=== PATIENT | female | born 1945 | race Caucasian/White ===

== ENCOUNTER 2016-07-26 10:44 | Outpatient (CLI) | payer MEDICARE, OTHER ==
[~2016-07-26] VITALS: Ht 163.8 cm; Wt 89.1 kg
--- NOTE | ~2016-07-26 | HEMODYNAMI ---
PATIENT:HAWA ANTONIO MEDICAL RECORD: [id number] : 41 LOCATION:[facility] ADMISSION DATE: 07/26/16 Generatedon:07/26/201613:39 Patient name: HAWA ANTONIO Patient #: [id number] SSN: [id number] : 1945 Date of study: 07/26/2016 Page: Of Hemodynamic Procedure Report Patient Data Patient Demographics Procedure consent was obtained First Name: HAWA Gender: Female Last Name: MARISELA : 1945 Patient #: [id number] Age: 70 year(s) Race: SSN: [id number] Additional ID: [id number] Contact details [address]: [address] [place] [address] State: [place] City: [place] Zip code: [address] Past Medical History Allergies Allergen Reaction Date Comments Reported Other allergy 07/26/2016 Sulfa Admission Admission Data Admission Date: 07/26/2016 Admission Time: 10:44 Arrival Date: 07/26/2016 Arrival Time: 13:00 Admit Source: Other Height (in.): 66 BSA: 1.98 (m2) Height (cm.): 167.64 BMI: 31.63 (kg/m2) Weight (lbs.): 196 Weight (kg.): 88.9 Lab Results Lab Result Date: 07/26/2016 Lab Result Time: 0:00 Biochemistry Name Units Result Min Max BUN mg/dl 18 --(---*)-- 7 18 Creatinine mg/dl 1 --(--*-)-- 0.6 1.3 CBC Name Units Result Min Max Hemoglobin g/dl 13.9 --(*---)-- 13.5 17.5 Procedure Procedure Types Cath Procedure Diagnostic Procedure C [facility] w/Coronaries Miscellaneous Procedures Moderate Sedation up to 15 minutes Peripheral Cath Diagnostic Procedure Cath Peripheral Kapxt-Mlyijtz-Mrw-Off Procedure Description Procedure Date Procedure Date: 07/26/2016 Procedure Start Time: 13:23 Procedure End Time: 13:37 Procedure Staff Name Function Fredy Srinivasan MD Performing Physician [place] RT Scrub Yanira Ramsay RN Nurse Melly Romeo RT Monitor Indication Angina Procedure Data Cath Procedure Fluoroscopy Diagnostic fluoroscopy Total fluoroscopy Time: 2.6 time: 2.6 min min Diagnostic fluoroscopy Total fluoroscopy dose: 493 dose: 493 mGy mGy Contrast Material Contrast Material Type Amount (ml) Isovue 300 120 Entry Location Entry Primary Successful Side Size Upsize Upsize Entry Closure Succes sful Closure Location (Fr) 1 (Fr) 2 (Fr) Remarks Device Remarks Femoral Right 5 Fr Exoseal artery Estimated blood loss: 10 ml Diagnostic catheters Device Type Used For End Catheter Placement Cordis 5Fr JL 4.0 Procedure Catheter (MP) Cordis 5Fr 3DRC Catheter Procedure (MP) Cordis 5Fr Pigtail Ventriculography Catheter (MP) Procedure Complications No complications Procedure Medications Medication Administration Route Dosage Oxygen NC 2 l/min Heparin Flush Bag added to field 2 bags (1000units/500ml NS) Lidocaine 2% added to field 20 Versed I.V. 1 mg Fentanyl I.V. 50 mcg Versed I.V. 0.5 mg Fentanyl I.V. 25 mcg Versed I.V. 0.5 mg Fentanyl I.V. 25 mcg Fentanyl I.V. 25 mcg Fentanyl I.V. 25 mcg Hemodynamics Rest BSA: 1.98 (m2) HGB: 13.9 (g/dl) O2 Consumption: Estimated: 269.28 (ml/min) O2 Co nsumption indexed: Estimated:136 (ml/min/m) Heart Rate: 0 (bpm) Pressure Samples Time Site Value (mmHg) Purpose Heart Use Rate(bpm) 13:25 AO 128/47(80) Snapshot 15 13:30 LV 123/24,24 Snapshot 79 13:31 AO 124/38(72) Pullback 78 13:31 LV 130/-13,8 Pullback 78 Gradients Valve Time Site 1 Site 2 Mean SEP/DFP Peak To Heart Use (mmHg) (sec/min) Peak Rate (mmHg) (bpm) Aortic 13:31 LV AO 9 27 6 78 130/-13,8 124/38(72) Calculations Valve P-P Mean Valve Index Valve Source Name Gradient Area Flow (cm2) Aortic 6 9 6 9 Snapshots Pre Cath Intra NCS Post Cath Vital Signs Time Heart Resp SPO2 etCO2 [id number] NIBP (mmHg) Rhythm Pain Sedation Rate (ipm) (%) (mmHg) (mmHg) Status Level (bpm) 13:02:13 80 25 99 0 0 165/69(106) NSR 0 (11) 10(A) , No pain 13:06:39 79 16 99 0 0 159/65(103) NSR 0 (11) 10(A) , No pain 13:10:59 80 17 96 0 0 153/63(105) NSR 0 (11) 10(A) , No pain 13:15:21 74 16 95 0 0 143/58(87) NSR 0 (11) 10(A) , No pain 13:19:43 74 16 95 0 0 124/58(89) NSR 0 (11) 9(A) , No pain 13:24:02 71 19 97 0 0 129/56(108) NSR 0 (11) 9(A) , No pain 13:28:17 76 17 98 0 0 119/47(80) NSR 0 (11) 9(A) , No pain 13:33:17 78 18 96 0 0 Measuring NSR 0 (11) 9(A) , No pain 13:33:31 75 16 95 0 0 118/51(78) NSR 0 (11) 9(A) , No pain 13:37:47 78 18 95 0 0 123/55(82) NSR 0 (11) 9(A) , No pain Medications Time Medication Route Dose Verified Delivered Reason Notes Effe ctiveness by by 13:01:57 Oxygen NC 2 Fredy Yanira for l/min Craig Ramsay RN arrhythmia 13:02:05 Heparin Flush added 2 Fredy Fredy used for Bag to bags Craig Srinivasan MD procedure (1000units/500ml field NS) 13:02:15 Lidocaine 2% added 20ml Fredy Fredy used for to vial Craig Srinivasan MD procedure field 13:11:13 Versed I.V. 1 mg Fredy Yanira for Craig Ramsay RN sedation 13:11:20 Fentanyl I.V. 50 Fredy Yanira for mcg Craig Ramsay RN sedation 13:14:30 Versed I.V. 0.5 Fredy Yanira for mg Srinivasan MD [place] RN sedation 13:14:37 Fentanyl I.V. 25 Fredy Yanira for mcg Craig Ramsay RN sedation 13:16:53 Versed I.V. 0.5 Fredy Yanira for mg Craig Ramsay RN sedation 13:17:03 Fentanyl I.V. 25 Fredy Yanira for mcg Craig Ramsay RN sedation 13:20:37 Fentanyl I.V. 25 Fredy Yanira for mcg Craig Ramsay RN sedation 13:24:47 Fentanyl I.V. 25 Fredy Yanira for mcg Criag Ramsay RN sedation Procedure Log Time Note 12:47:27 Diagnostic Cath Status : Salvage 12:48:15 Indication : Angina 12:48:20 Yanira Ramsay RN sent for patient. Start room use. 12:48:21 Time tracking: Regular hours 12:48:26 Plan of Care:Hemodynamics will remain stable., Cardiac rhythm will remain stable., Comfort level will be maintained., Respiratory function will remain adequate., Patient/ family verbilizes understanding of procedure., Procedure tolerated without complication., Recovers from procedure without complications.. 12:50:45 Informed consent obtained and on chart 12:51:01 Admit Source: Other 12:51:03 Arrival Date: 07/26/2016 1:00:00 PM 12:57:03 Patient Height : 66 cm 12:57:11 Patient Weight : 196 kg 12:57:22 Patient received from Pre/Post Procedure Room to CCL 1 Alert and oriented. Tansferred to table in Supine position. 12:57:24 Warm blankets applied, and humza hugger turned on for patient comfort. 12:57:24 Correct patient and procedure confirmed by team. 12:59:30 H&P Date Dictated: 07/16/2016 Within 30 days and on chart., H&P Addendum completed by physician on day of procedure. (MUST COMPLETE FOR ALL OUTPATIENTS). 12:59:33 Family in waiting room. 12:59:36 Patient NPO since Midnight. 12:59:52 Patient allergic to Other allergySulfa 13:00:51 ECG and BP/O2 sat monitors applied to patient. 13:00:57 Vital chart was started 13:01:07 Baseline sample Acquired. 13:01:14 Rhythm: sinus rhythm 13:01:16 Full Disclosure recording started 13:01:57 Oxygen 2 l/min NC was administered by Yanira Ramsay RN; for arrhythmia; 13:02:05 Heparin Flush Bag (1000units/500ml NS) 2 bags added to field was administered by Fredy Srinivasan MD; used for procedure; 13:02:15 Lidocaine 2% 20ml vial added to field was administered by Fredy Srinivasan MD; used for procedure; 13:07:09 Is the patient allergic to Iodine/contrast media? No. 13:07:12 Is patient on blood thinner?No 13:07:16 Patient diabetic? N/A. 13:07:20 Snore? Yes 13:07:22 Sleep apnea? No 13:07:36 IV patent on arrival in right hand with 0.9% NaCl at [facility]. 13:07:53 Lab results completed and on chart. 13:08:00 Bilateral groins area was prepped with chlora-prep and draped in sterile fashion 13:08:17 Alarms reviewed by R. N. 13:08:18 Sharps counted by scrub and verified by R.N. 13:08:19 Physician paged 13:08:21 Physician arrived 13:09:57 --------ALL STOP TIME OUT------ 13:09:58 Final Timeout: patient, procedure, and site verified with staff and physician. All members of the team are in agreement. 13:10:04 Bilateral groins site verified by team. 13:10:09 Sedation plan: IV Moderate Sedation Versed, Fentanyl 13:10:14 Physical assessment completed. ASA score P 2 - A patient with mild systemic disease as per Fredy Srinivasan MD. 13:10:35 Use device set Femoral Dx 13:10:36 Acist Syringe opened to sterile field. 13:10:37 Bag Decanter opened to sterile field. 13:10:37 Medline Cath Pack opened to sterile field. 13:10:37 Terumo 5Fr [place] Sheath opened to sterile field. 13:10:38 St Madhav 260cm J .035 wire opened to sterile field. 13:10:39 Acist Hand Control opened to sterile field. 13:10:40 Acist Manifold opened to sterile field. 13:10:40 Diagnostic Infinity 5Fr Multipack catheter opened to sterile field. 13:10:41 Tegaderm 4 x 4 opened to sterile field. 13:11:13 Versed 1 mg I.V. was administered by Yanira Ramsay RN; for sedation; 13:11:20 Fentanyl 50 mcg I.V. was administered by Yanira Ramsay RN; for sedation; 13:14:30 Versed 0.5 mg I.V. was administered by Yanira Ramsay RN; for sedation; 13:14:37 Fentanyl 25 mcg I.V. was administered by Yanira Ramsay RN; for sedation; 13:16:53 Versed 0.5 mg I.V. was administered by Yanira Ramsay RN; for sedation; 13:17:03 Fentanyl 25 mcg I.V. was administered by Yanira Ramsay RN; for sedation; 13:17:06 Lab Result : Hemoglobin 13.9 g/dl 13:17:06 Lab Result : Creatinine 1 mg/dl 13:17:06 Lab Result : BUN 18 mg/dl 13:17:22 Procedure type changed to Cath procedure, Diagnostic procedure, LHC, LHC w/Coronaries, Miscellaneous Procedures, Moderate Sedation up to 15 minutes, Peripheral Cath Diagnostic Procedure, Cath Peripheral, Modxe-Yckemkd-Xwh-Off 13:20:37 Fentanyl 25 mcg I.V. was administered by Yanira Ramsay RN; for sedation; 13:22:11 Zero performed for pressure channel P1 13:22:22 Zero performed for pressure channel P1 13:22:45 Procedure started. 13:23:14 Local anesthetic to right femoral artery with Lidocaine 2% by Fredy Srinivasan MD.INITIAL ACCESS ONLY 13:24:20 A 5 Fr sheath was inserted into the Right Femoral artery 13:24:38 J wire advanced. 13:24:47 Fentanyl 25 mcg I.V. was administered by Yanira Ramsay RN; for sedation; 13:24:55 A Cordis 5Fr JL 4.0 Catheter (MP) was advanced over the wire and used for Procedure. 13:25:42 LCA angiography performed. 13:26:30 Catheter removed. 13:27:39 A Cordis 5Fr 3DRC Catheter (MP) was advanced over the wire and used for Procedure. 13:28:17 Catheter removed. 13:30:39 A Cordis 5Fr Pigtail Catheter (MP) was advanced over the wire and used for Ventriculography. 13:31:32 EF : 60 % 13:32:04 Abdominal angiogram w/ runoff was performed. 13:32:41 Left leg runoff performed. 13:32:52 Right leg runoff performed. 13:34:28 Catheter removed. 13:34:42 Cordis 5Fr Exoseal opened to sterile field. 13:35:02 Sheath removed intact; hemostasis achieved with Exoseal to the Right Femoral artery. 13:35:06 Procedure ended.(Physican Out) 13:35:22 Fluoroscopy time 02.60 minutes. 13:35:28 Fluoroscopy dose: 493 mGy 13:35:28 Flurop Dose total: 493 13:35:33 Contrast amount:Isovue 300 120ml. 13:35:35 Sharps counted by scrub and verified by R.N. 13:35:40 Insertion/operative site no bleeding no hematoma. 13:35:47 Post right femoral artery:stable 13:35:49 Post Procedure Pulses reassessed and unchanged 13:35:53 Post-procedure physical assessment completed. ASA score P 2 - A patient with mild systemic disease as per Fredy Srinivasan MD. 13:35:57 Post procedure rhythm: unchanged. 13:36:18 Estimated blood loss: 10 ml 13:36:20 Post procedure instruction explained to patient.Patient verbalizes understanding. 13:36:23 Procedure and supply charges have been captured, reviewed, submitted and are correct. 13:37:37 Procedure Complication : No complications 13:37:41 Vital chart was stopped 13:37:42 See physician's report for complete and final results. 13:37:49 Report given to Pre/Post Procedure Room. 13:37:55 Patient transfered to Pre/Post Procedure Room with Stretcher. 13:37:58 Procedure ended. 13:37:58 Full Disclosure recording stopped 13:38:01 End room use (Document Last) Device Usage Item Name Manufacture Quantity Catalog Hospital Part Current Minimal Lo t# / Number Charge Number Stock Stock Serial# Code Acist Acist 1 [id number] 420691 [id number] 20 Syringe [employer] Bag Microtek 1 2002S 879301 30423 613296 5 Decanter [employer] Medline Cardinal 1 [id number] [id number] 38235 786429 5 Cath Pack [employer] Terumo 5Fr Terumo 1 [id number] 462851 457393 [id number] [address] Madhav 1 004232 158408 204772 297693 30 260cm J .035 wire Acist Hand Acist 1 65946 675971 850069 188179 5 Control [employer] Inc Acist Acist 1 86319 086588 168146 655442 5 Manifold [employer] Inc Diagnostic Cardinal 1 [id number] 555122 09173 659821 30 Infinity [employer] 5Fr Multipack catheter Tegaderm 4 3M 1 1626W 468854 117197 099305 5 x 4 Cordis 5Fr Cardinal 1 313854 5 JL 4.0 Health Catheter (MP) Cordis 5Fr Cardinal 1 [id number] 5 3DRC Health Catheter (MP) Cordis 5Fr Cardinal 1 349178 5 Pigtail Health Catheter (MP) Cordis 5Fr Cardinal 1 EX500 131300 293856 171144 10 Bruin Brake [employer]ables Signature Audit Boaz Stage Time Signature Unsigned Intra-Procedure 07/26/2016 Melly Romeo 1:39:23 PM RT(R) Signatures Monitor : Melly Romeo Signature : RT Date : Time : [place] [id number] [place] [address]
--- NOTE | ~2016-07-26 | OP ---
PATIENT NAME: HAWA ANTONIO MEDICAL RECORD: [id number] :41 LOCATION:D.CAT ADMISSION DATE: SURGEON: CLEMENCIA DRAKE M.D. DATE OF OPERATION: 07/26/2016 Catheterization Report REFERRING PHYSICIAN: Manny Arizmendi MD. PROCEDURES PERFORMED: 1. Selective coronary angiography. 2. Left heart catheterization with ventriculogram. 3. Aortofemoral runoff. INDICATION: A 70-year-old presents with symptoms of accelerating angina. She has been having lifestyle limiting claudication as well. EQUIPMENT USED: A 5-Paraguayan JL4, Dave right, pigtail catheter. TECHNIQUE: A 5-Paraguayan sheath was inserted in retrograde fashion in the right common femoral artery. Next, selective coronary angiography was performed in standard 5-Paraguayan JL4 and Dave right. Left heart catheterization performed using pigtail catheter. Next, the pigtail catheter was pulled down to the level of T12. Power injection was performed to visualize the distal aorta. Next, the catheter was pulled down to the level of bifurcation. Prior injection was then performed to visualize the right and left lower extremities. CORONARY ANATOMY: 1. Left main: Left main trunk is moderate in caliber. It gives rise to the LAD and circumflex. It has no obstruction. 2. LAD: This is a large caliber vessel extending to the apex. It gives rise to a moderate caliber diagonal proximal segment. The LAD and diagonal have mild irregularities, but nothing worse than 20%. 3. Circumflex: This vessel is moderate in caliber, smooth-walled vessel and angiographically normal. 4. Right coronary: This vessel is moderate in caliber and dominant. It supplies the PDA and posterolateral branch in distal segment. This vessel encompasses the apex. This vessel is angiographically normal. 5. Left ventricle: Left ventricle is normal in size and function. No wall motion abnormalities are seen. Its ejection fraction is in the order of 60%. AORTOFEMORAL RUNOFF: The distal aorta is of good caliber. It is widely patent. Each kidney received single arterial supply. There is no evidence of renal artery stenosis. The right common iliac artery is large in caliber and widely patent. Right common femoral artery is large in caliber and widely patent. Right superficial artery is large in caliber and widely patent. Right popliteal artery large in caliber and widely patent. Below the knee, the patient appears to have 3-vessel runoff. Left common iliac artery is large in caliber and widely patent. Left common femoral artery is large in caliber and widely patent. Left superficial artery is large in caliber and widely patent. Left popliteal is large in caliber and widely patent. Below the knee, there appears to be 3-vessel runoff. OPERATIVE REPORT [id number] HAWA ANTONIO IMPRESSION: 1. Normal coronary arteries. 2. Normal left ventricular function. 3. No evidence of peripheral vascular disease. TRANSINT:[id number] Voice Confirmation ID: [id number] DOCUMENT ID: [id number] CLEMENCIA DRAKE M.D. CC: [id number] DICTATION DATE: 07/26/16 1343 CELL ATTENDANT HELPER: 07/26/16 2334 DEP CLI 07/26/16 [facility] [address] [place] [address]
[2016-07-26] MEDS ORDERED: MICARDIS40 MG PO (11:01)
[2016-07-26] MEDS ORDERED: BAYER CHEWABLE81 MG PO (11:02)
[2016-07-26] MEDS ORDERED: LIPITOR10 MG PO (11:02)
[2016-07-26] MEDS ORDERED: TOPROL XL100 MG (11:03)
[2016-07-26 11:04] VITALS: BP 175/58; Ht 163.8 cm; Wt 89.1 kg
[2016-07-26 11:48] LABS: HEMATOCRIT 42.2 % (36.0-48.0); HEMOGLOBIN 13.9 g/dL (12-16); IMMATURE GRANULOCYTES 0.2 % (0-5); LYMPHOCYTES 32.7 % (15-50); MCHC 32.9 g/dL (31.0-37.0); MCV 88.1 fL (80.0-100.0); MEAN PLATELET VOLUME 11.6 fL (7.4-10.4); MONOCYTES 11.3 % (2-11); NEUTROPHILS 47.8 % (40-80); PLATELET COUNT 273 10x3/uL (130-400); RBC 4.79 10x6/uL (4.00-5.40); RDW 13.3 % (11.5-14.5)
[2016-07-26 12:23] LABS: ANION GAP 11.6 mmol/L (8-16); CALCIUM 9.8 mg/dL (8.5-10.1); CARBON DIOXIDE 28.7 mmol/L (21.0-32.0); POTASSIUM - SERUM 4.3 mmol/L (3.5-5.1)
--- NOTE | 2016-07-26 16:04 | NUR ---
1405 LYING FLAT, AWAKE AND ALERT TALKING WITH FAMILY AT BEDSIDE. VITALS ALL WNL. R GROIN EXOSEAL C/D/I WITH NO HEMATOMA OR BLEEDING. 1435 RESTING WITH EYES CLOSED. R GROIN REMAINS C/D/I WITH NO HEMATOMA OR BLEEDING. 1530 HOB ELEVATED, EATING TURKEY SANDWICH. ALL VITALS REMAIN WNL. R GROIN C/D/I WITH NO HEMATOMA OR BLEEDING.
--- NOTE | 2016-07-26 16:31 | NUR ---
PIV REMOVED WITH BANDAID APPLIED. AMBULATED TO BATHROOM TO VOID. R GROIN REMAINS C/D/I AFTER AMBULATING. D/C INSTRUCTIONS DISCUSSED WITH PATIENT AND FAMILY AT BEDSIDE. WHEELED OUT VIA WHEELCHAIR.
== END 2016-07-26 16:33 | disposition home or self-care (01) ==
LOC: D.CATH 10:44
PROVIDERS: Internal Medicine Cardiovascular Disease
DX: I20.9 Angina pectoris, unspecified (principal); E78.5 Hyperlipidemia, unspecified; I10 Essential (primary) hypertension; R06.00 Dyspnea, unspecified; I70.213 Atherosclerosis of native arteries of extremities with intermittent claudication, bilateral legs; Z01.812 Encounter for preprocedural laboratory examination

== ENCOUNTER → 2017-11-23 19:07 | Outpatient (CLI) | payer MEDICARE, OTHER ==
[2016-07-26 11:04] VITALS: BMI 33.2
[~2017-11-23 19:07] MED LIST: BAYER CHEWABLE81 MG PO; LIPITOR10 MG PO; MICARDIS40 MG PO; TOPROL XL100 MG
== END | disposition home or self-care (01) ==
LOC: D.MAMMO 10:30
DX: Z12.31 Encounter for screening mammogram for malignant neoplasm of breast (principal)

== ENCOUNTER → 2018-02-02 20:46 | Outpatient (CLI) | payer MEDICARE, OTHER ==
[2016-07-26 11:04] VITALS: BMI 33.2
== END | disposition home or self-care (01) ==
LOC: D.MAMMO 10:00
DX: R92.8 Other abnormal and inconclusive findings on diagnostic imaging of breast (principal)

== ENCOUNTER 2018-08-28 13:00 | Outpatient (CLI) | payer MEDICARE, OTHER ==
[2016-07-26 11:04] VITALS: BMI 33.2
== END 2018-08-28 13:30 | disposition home or self-care (01) ==
LOC: D.MAMMO 13:00
PROVIDERS: ATTEND Specialist
DX: R92.8 Other abnormal and inconclusive findings on diagnostic imaging of breast (principal)

== ENCOUNTER → 2018-10-04 08:34 | Outpatient (CLI) | payer MEDICARE, OTHER ==
[2016-07-26 11:04] VITALS: BMI 33.2
== END | disposition home or self-care (01) ==
LOC: D.RAD 08:34
PROVIDERS: ATTEND Family Medicine
DX: R13.10 Dysphagia, unspecified (principal)

== ENCOUNTER 2019-09-11 08:00 | Outpatient (CLI) | payer MEDICARE, OTHER ==
[2016-07-26 11:04] VITALS: BMI 33.2
== END 2019-09-11 10:00 | disposition home or self-care (01) ==
LOC: D.MAMMO 08:00
PROVIDERS: ATTEND Family Medicine
DX: Z12.31 Encounter for screening mammogram for malignant neoplasm of breast (principal)

== ENCOUNTER 2020-07-01 13:30 | Outpatient (CLI) | payer MEDICARE, OTHER ==
[2016-07-26 11:04] VITALS: BMI 33.2
== END 2020-07-01 23:59 | disposition home or self-care (01) ==
LOC: D.US 13:30
PROVIDERS: ATTEND Family Medicine
DX: R09.89 Other specified symptoms and signs involving the circulatory and respiratory systems (principal); I10 Essential (primary) hypertension

== ENCOUNTER → 2020-07-24 13:45 | Outpatient (CLI) | payer MEDICARE, OTHER ==
[2016-07-26 11:04] VITALS: BMI 33.2
== END | disposition home or self-care (01) ==
LOC: D.CT 13:00
PROVIDERS: ATTEND Internal Medicine Cardiovascular Disease
DX: I65.23 Occlusion and stenosis of bilateral carotid arteries (principal)